=== PATIENT | female | born 1970 | race Caucasian/White ===

== ENCOUNTER → 2016-10-05 | Outpatient (CLI) | payer BC ==
[2016-10-05 12:44] LABS: HEMATOCRIT 44.4 % (37.0-47.0); HEMOGLOBIN 14.6 g/dL (12.0-16.0); MEAN CORPUSCULAR HEMOGLOBIN 34.7 PG (27-31); MEAN CORPUSCULAR HGB CONC 32.9 g/dL (33-37); MEAN PLATELET VOLUME 9.2 FL (7.4-12.2); RED BLOOD COUNT 4.21 10^6/uL (4.20-5.40)
== END ==
LOC: MOB LAB 11:48
PROVIDERS: ATTEND Nurse Practitioner Family
DX: E83.19 Other disorders of iron metabolism (principal); F17.210 Nicotine dependence, cigarettes, uncomplicated
CPT/HCPCS: 36415; 81256; 82728; 85027

== ENCOUNTER → 2016-11-24 | Outpatient (CLI) | payer BC ==
--- NOTE | 2016-11-24 14:44 | DI ---
XR FOOT COMPLETE MIN 3VW WB,11/24/2016 11:18 AM: Clinical History: Hallux valgus the right foot. Previous Exam: None at this facility. Findings: 3 views of the right foot are obtained, and demonstrate a hallux valgus deformity measuring 25?. The surrounding soft tissues are unremarkable. There is some mild prominence of the soft tissues over the right first metatarsophalangeal joint. There is no evidence of bony erosion. Impression: Hallux valgus otherwise unremarkable.
== END ==
LOC: MOB RAD 11:20
PROVIDERS: ATTEND Podiatrist Foot & Ankle Surgery
DX: M20.11 Hallux valgus (acquired), right foot (principal); M79.671 Pain in right foot
CPT/HCPCS: 73630

== ENCOUNTER 2016-12-16 07:50 | Day surgery (SDC) | payer BC ==
[~2016-12-16 07:50] MED LIST: BUPivacaine Inj 0.5% PF (5mg/ml) 10ml vial ONE; Clindamycin 900mg (Premix) 50 ML IV ONE; LIDOCAINE W/ SODIUM BICARB 0.5 ML SYR ONE; Lactated Ringers 1,000 ML PRIMARY IV ONE; Lidocaine Inj 1% 20 ML ONE
[2016-12-16] MEDS ORDERED: fentaNYL Inj 100 MCG/2 ML VIAL ONE (09:20)
[2016-12-16] MEDS ORDERED: MIDAZOLAM 5 MG/1 ML ONE ×2 (09:20→12:09)
[2016-12-16] MEDS ORDERED: DEXAMETHASONE PF 10 MG/1 ML VIAL ONE (09:20)
[2016-12-16] MEDS ORDERED: MEPIVACAINE HCL/PF 20 MG/1 ML IV ONE (09:20)
[2016-12-16] MEDS ORDERED: BUPIVACAINE 0.5% W/EPI MPF -30 ML VIAL IV ONE (09:21)
--- NOTE | 2016-12-16 09:47 | CRNA.PROCE ---
Nerve Block Documentation - - Safety Measures: Time Out Taken, Site Verified - - Type of Nerve Block Used: Right Popliteal Fossa Block (Primary anesthetic for podiatry surgery. Will add sedation as necessary.) Position for Nerve Block: Prone Moniters Used During Block: EKG, SPO2, NIBP Oxygen Sumpplented: Yes Sedation Used - Enter Amount in Comment Field: Midazolam (mg): Yes (3 mg), Fentanyl (mcg): Yes (50 mcgs) Skin Prep Used: ChloroPrep Draped: No Technique: Nerve Stimulator Nerve Block Needle Used: 80 mm ProBlk II Stimulation Hz: 1.0 Stimulation Staring mA: 1.8 Stimulation Ending mA: 0.48 Local Anesthetic - Enter Amt in Comment Field: 0.5 % Bupivicaine with Epinephrine 1:200,000 (mL): Yes (25 ml in 3 ml increments), 2 % Mepivacaine (mL) : Yes (15 ml increments) Additives to Nerve Blocks: Dexamethasone (mL): Yes (10 mg)
[2016-12-16] MEDS ORDERED: Lactated Ringers 1,000 ML PRIMARY IV ONE (12:43)
[2016-12-16] MEDS ORDERED: BUPivacaine Liposome/PF (Exparel) Inj 20ml vial INFIL ONE (13:33)
[2016-12-16] MEDS ORDERED: HYDROcodone-APAP 7.5 MG-325 MG TABLET PO PRN (13:50)
[2016-12-16] MEDS ORDERED: NORMAL SALINE 10 ML SYRINGE FLUSH IVP PRN (13:50)
--- NOTE | 2016-12-16 14:08 | GEN.OPNOTE ---
Operative Report Surgeon: Quentin Simon DPM Anesthesia Type: Regional, Local, MAC Anesthesia Provider: Junie Mead CRNA Surgery Date: 12/16/16 Preoperative Diagnosis: 1. Right foot pain. 2. Right hallux abductovalgus. Postoperative Diagnosis: 1. Right foot pain. 2. Right hallux abductovalgus. Procedure: 1. Right long arm Samuel / Kike bunionectomy. Estimated Blood Loss (mL): 5 (right ankle pneumatic cuff at 250 mmHg pressure for 91 minutes total time.) Fluids: 900 mg Clindamycin. 1300 mL Ringer's Complications: None Description of Procedure: Patient was given a popliteal block by anesthesia and brought to the operating room in mild sedation. She was then transferred to the operating table and her foot was prepped and draped in the usual sterile fashion. She received 900mg of Clindamycin. A timeout was performed, including indication a left foot bunion that had been properly marked, and an allergies to latex. Surgical markings of the right first ray were drawn for a dorsomedial incision from the IPJ of the great toe to the base of the first metatarsal. The foot was exsanguinated with an Esmarch bandage and the pneumatic cuff inflated about the right ankle to 250 mmHg pressure. Utilizing a #15 blade this incision was made and deepened by sharp and blunt dissection to the level of the joint capsule. A Bovie was used as needed the neurovascular structures were retracted. The joint capsule was incised dorsal medially and reflected carefully from the large bunion or dorsal medial exostosis. This is then removed with a sagittal saw. The periosteum was then reflected from the dorsal medial to medial first metatarsal and a long arm Samuel type osteotomy was planned for the first metatarsal. A 0.045 K wire was placed from medial to lateral at the neck or apex of the first metatarsal and checked with C-arm. A long arm Samuel type osteotomy was then made from medial to laterally using a saw guide and a finetooth #10 sawblade. This was done under C-arm guidance for proper length and positioning. Once the cuts had been made the capital fragment was then displaced laterally to decrease the IM angle. It was then fixated with a K-wire in its corrected position. And then fixated with two 2.5mm X 16mm headless dartfire screws. Good compression of the osteotomy was performed. A decrease in the IM angle was noted on radiographs. The wounds were copiously irrigated. Attention was then directed to the proximal phalanx of the great toe. An Kike or wedge osteotomy was performed from medial to lateral, maintaining a lateral cortical hinge. Feathering was performed to make a flush fit and then the osteotomy was fixated with a staple. A [employer] staple implant 10 mm x 10 mm was used for fixation. Good compression was noted. The wound was then copious irrigated again. A capsulorrhaphy was then performed of the first metatarsal phalangeal joint to remove excess medial capsule. And tightened medially to help align the sesamoids. This was closed with 2-0 Vicryl. 8 mL of Exparel was infiltrated around the first ray for longer postoperative analgesia. The periosteum and subcutaneous tissues were then closed with 4-0 Vicryl and the skin with 4-0 nylon in a running subcuticular stitch. This was reinforced with Mastisol and Steri-Strips. A dressing was then applied utilizing Xeroform 4 x 4 gauze fluffs Kerlix and a Coban dressing. The pneumatic cuff was then released from the right ankle after having been up for 91 minutes total time. Capillary return was noted to all toes. The patient tolerated the procedure well, and good reduction of the bunion deformity is noted both radiographically and visually. She was then transferred back to the recovery room.
[2016-12-16 15:15] VITALS: TEMP 98.6
[2016-12-16 15:19] VITALS: RESP 15
--- NOTE | 2016-12-16 15:20 | DI ---
RIGHT FOOT, 12/16/2016 1:50 PM: Clinical History: Right hallux valgus deformity. Previous Exam: 11/24/2016. 3 views are submitted. The patient is status post bunionectomy and osteotomies of the proximal phalan x of the great toe and the first metatarsal bone with correction of a hallux valgus deformity. The re mainder of the exam is normal. Reading: Osteotomies of the first metatarsal bone and the proximal phalanx of the great toe. Bunionectomy.
--- NOTE | 2016-12-20 09:35 | OPS CRUTCH ---
Diagnosis : Right Bunionectomy Referral Reason: Gait Training/Ankle Cryo Cuff S: The patient states she has used crutches before. She states she has three stairs into her home. O: The patient ambulated 100 feet with crutches and then ascended and descended three stairs. The patient was also issued a Cryo-Cuff and instructed in its proper use and care. A: The patient tolerated crutch and stair training very well. P: No further therapy is indicated at this time. MTDD
== END 2016-12-16 14:53 | disposition home or self-care (01) ==
LOC: SDSC 07:50
PROVIDERS: ATTEND Podiatrist Foot & Ankle Surgery
DX: M20.11 Hallux valgus (acquired), right foot (principal)
CPT/HCPCS: 28299; 73630; 76001; 97116; C9290; J2704; J3010; S0020; J0670; J1100; J2001; J2250; J3490; J7120

== ENCOUNTER → 2017-01-19 | Outpatient (CLI) | payer BC ==
--- NOTE | 2017-01-19 14:49 | DI ---
XR FOOT COMPLETE MIN 3VW WB,01/19/2017 2:25 PM: Clinical History: Hallux valgus of the right foot Previous Exam: 12/16/16 Findings: 3 views of the right foot are obtained, and demonstrate anatomic alignment without fractures. Postsur gical changes are seen consistent with hallux obvious repair. There has been some interval healing of the osteotomies of the first metatarsal and the first proximal phalanx. Impression: Healing right hallux valgus repair.
== END ==
LOC: MOB RAD 14:27
PROVIDERS: ATTEND Podiatrist Foot & Ankle Surgery
DX: Z47.89 Encounter for other orthopedic aftercare (principal); M20.11 Hallux valgus (acquired), right foot; M79.671 Pain in right foot; Z98.890 Other specified postprocedural states
CPT/HCPCS: 73630